=== PATIENT | female | born 1945 | race Caucasian/White ===

== ENCOUNTER 2019-11-20 09:51 | Outpatient (CLI) | payer OTHER, SELFPAY ==
--- NOTE | ~2019-11-20 | US_ITS ---
US abdomen complete EXAMINATION: US Abdomen Complete INDICATION: Right upper quadrant abdominal pain PROCEDURE: Realtime High Resolution abdomen ultrasound. COMPARISON: CT dated 01/05/2019 FINDINGS: There are gallstones with mild gallbladder wall thickening. Common bile duct measures 3 mm . Liver echotexture within normal limits without focal mass. Pancreas within normal limits. Pancreati c tail is obscured by bowel gas. Spleen is unremarkeable. Renal echotexture is within normal limits bilaterally without hydronephrosis, contour deforming mass or renal stone. Right kidney measures 10.5 cm. Left kidney measures 11.2 cm. Visualized aspects of the aorta and IVC are within normal limits. Portal vein is patent. No sonograph ic [place]'s sign indicated by the technologist. IMPRESSION: 1: Cholelithiasis with mild gallbladder wall thickening. Consider cholecystitis in the appropriate cl inical setting. Reviewed, dictated and finalized at location A. IMPRESSION: 1: Cholelithiasis with mild gallbladder wall thickening. Consider cholecystitis in the appropriate clinical setting.
== END 2019-11-20 09:52 | disposition home or self-care (01) ==
PROVIDERS: PCP Family Medicine Adolescent Medicine; Visit Provider Family Medicine Adolescent Medicine
DX: R10.11 Right upper quadrant pain (principal); R10.12 Left upper quadrant pain; K80.20 Calculus of gallbladder without cholecystitis without obstruction
CPT/HCPCS: 76700

== ENCOUNTER 2019-11-29 10:56 | Outpatient (CLI) | payer OTHER, SELFPAY ==
[2019-11-29 11:15] LABS: Basophils Percent Auto 0.3 % (0.2-1.2); Eosinophils Absolute Auto 0.2 K/mm3 (0-0.3); Eosinophils Percent Auto 1.3 % (0-4.4); Hematocrit 45.6 % (37.0-47.0); Hemoglobin 14.7 g/dL (12.0-15.0); Immature Granulocyte Absolute 0.03 K/mm3 (0.00-0.031); Immature Granulocyte Percent A 0.2 % (0-0.5); Lymphocytes Absolute Auto 6.72 K/mm3 (0.9-3.2); Lymphocytes Percent Auto 53.1 % (18.3-44.2); Mean Corpuscular HGB Conc 32.2 g/dl (32-36); Mean Corpuscular Hemoglobin 30.8 pg (26-34); Mean Corpuscular Volume 95.4 fl (80-100); Mean Platelet Volume 11.4 fl (7.4-10.4); Monocytes Absolute Auto 1.5 K/mm3 (0.1-0.6); Monocytes Percent Auto 11.9 % (2.6-8.5); Neutrophils Absolute Auto 4.2 K/mm3 (1.3-6.7); Neutrophils Percent Auto 33.2 % (45.5-73.1); Platelet Count Result 166 k/mm3 (150-375); Red Blood Count 4.78 M/mm3 (4.2-5.4); Red Cell Distribution Width 13.2 % (11.5-14.5); White Blood Count 12.7 K/mm3 (4.5-10.0)
[2019-11-29 11:20] LABS: Blood Urea Nitrogen 18 mg/dL (8-26); Carbon Dioxide 27 mmol/L (22-30); Chloride 105 mmol/L (98-109); Estimated Glomerular Filt Rate > 60; Glucose 94 mg/dL (70-105); Potassium 4.2 mmol/L (3.5-4.9); Sodium 141 mmol/L (138-146)
[2019-11-29 11:23] LABS: Atypical Lymphocytes Present; Platelet Estimate Adequate (Adequate)
[2019-11-29 12:01] LABS: Alanine Aminotransferase 16 U/L (4-35); Albumin Level 4.4 g/dL (3.5-5.1); Alkaline Phosphatase 101 U/L (38-126); Aspartate Amino Transferase 39 U/L (14-36); Bilirubin,Total 0.5 mg/dL (0.2-1.3); Blood Urea Nitrogen 18 mg/dL (7-17); Carbon Dioxide 26 mmol/L (22-30); Chloride 106 mmol/L (98-107); Estimated Glomerular Filt Rate > 60; Glucose 94 mg/dL (65-105); Lactate Dehydrogenase 506 U/L (313-618); Potassium 4.3 mmol/L (3.4-5.0); Sodium 139 mmol/L (137-145)
== END 2019-11-29 10:57 | disposition home or self-care (01) ==
PROVIDERS: PCP Family Medicine Adolescent Medicine; Visit Provider Internal Medicine Hematology & Oncology
DX: C83.00 Small cell B-cell lymphoma, unspecified site (principal)
CPT/HCPCS: 36415; 80048; 80053; 83615; 85025

== ENCOUNTER 2020-05-29 10:10 | Outpatient (CLI) | payer OTHER, SELFPAY ==
[2020-05-29 10:28] LABS: Basophils Absolute Auto 0.1 K/mm3 (0.0-0.1); Basophils Percent Auto 0.5 % (0.2-1.2); Eosinophils Absolute Auto 0.2 K/mm3 (0-0.3); Eosinophils Percent Auto 1.9 % (0-4.4); Hematocrit 45.1 % (37.0-47.0); Hemoglobin 14.7 g/dL (12.0-15.0); Immature Granulocyte Absolute 0.02 K/mm3 (0.00-0.031); Immature Granulocyte Percent A 0.2 % (0-0.5); Lymphocytes Percent Auto 48.9 % (18.3-44.2); Mean Corpuscular HGB Conc 32.6 g/dl (32-36); Mean Corpuscular Hemoglobin 30.5 pg (26-34); Mean Corpuscular Volume 93.6 fl (80-100); Mean Platelet Volume 11.1 fl (7.4-10.4); Monocytes Absolute Auto 1.3 K/mm3 (0.1-0.6); Monocytes Percent Auto 12.8 % (2.6-8.5); Neutrophils Absolute Auto 3.7 K/mm3 (1.3-6.7); Neutrophils Percent Auto 35.7 % (45.5-73.1); Platelet Count Result 169 k/mm3 (150-375); Red Blood Count 4.82 M/mm3 (4.2-5.4); Red Cell Distribution Width 13.2 % (11.5-14.5); White Blood Count 10.4 K/mm3 (4.5-10.0)
[2020-05-29 10:37] LABS: Atypical Lymphocytes Present; Platelet Estimate Adequate (Adequate)
[2020-05-29 12:24] LABS: Alanine Aminotransferase 18 U/L (4-35); Albumin Level 4.1 g/dL (3.5-5.1); Alkaline Phosphatase 97 U/L (38-126); Anion Gap 7 mmol/L (8-16); Aspartate Amino Transferase 37 U/L (14-36); Bilirubin,Total 0.5 mg/dL (0.2-1.3); Blood Urea Nitrogen 20 mg/dL (7-17); Calcium 9.2 mg/dL (8.4-10.2); Carbon Dioxide 25 mmol/L (22-30); Chloride 107 mmol/L (98-107); Estimated Glomerular Filt Rate > 60; Glucose 94 mg/dL (65-105); Lactate Dehydrogenase 461 U/L (313-618); Potassium 4.5 mmol/L (3.4-5.0); Sodium 139 mmol/L (137-145)
[2020-05-30 09:17] LABS: Blood Urea Nitrogen 21 mg/dL (8-26); Carbon Dioxide 23 mmol/L (22-30); Chloride 107 mmol/L (98-109); Estimated Glomerular Filt Rate > 60; Glucose 91 mg/dL (70-105); Potassium 4.3 mmol/L (3.5-4.9); Sodium 141 mmol/L (138-146)
== END 2020-05-29 10:11 | disposition home or self-care (01) ==
LOC: ANHLAB 10:12
PROVIDERS: PCP Family Medicine Adolescent Medicine; Visit Provider Internal Medicine Hematology & Oncology
DX: C83.00 Small cell B-cell lymphoma, unspecified site (principal)
CPT/HCPCS: 36415; 80048; 80053; 83615; 85025

== ENCOUNTER → 2020-08-06 17:07 | Outpatient (CLI) | payer OTHER, SELFPAY ==
--- NOTE | ~2020-08-06 | MM_ITS ---
EXAMINATION: MM screening prasanth BI w sarah HISTORY: Screening TECHNIQUE: Craniocaudal and mediolateral oblique 3-D tomosynthesis images were obtained and synthetic 2-D images were generated. CAD analysis was submitted and interpreted. COMPARISON: Comparison to multiple prior studies sequentially, with oldest reviewed study dated 09/2013. BREAST PARENCHYMAL COMPOSITION: There are scattered areas of fibroglandular density. FINDINGS: Axillary lymph nodes noted on prior examination are not visualized on the current study. Th ere is no evidence of suspicious mass, calcification, or architectural distortion to suggest malignan cy in either breast. There has been no suspicious interval change. IMPRESSION: 1. No mammographic evidence of malignancy. 2. Recommend routine screening mammography in one year. BI-RADS Category 1: Negative Reviewed, dictated and finalized at location A. CAL TECHNOLOGIST CHIEF
== END ==
PROVIDERS: Visit Provider Physician Assistant
DX: Z12.31 Encounter for screening mammogram for malignant neoplasm of breast (principal)
CPT/HCPCS: 77063; 77067

== ENCOUNTER 2021-09-07 09:27 | Outpatient (CLI) | payer OTHER, SELFPAY | END 2021-09-07 09:28 | disposition home or self-care (01) | LOC: ANHAUDIO 09:28 | PROVIDERS: Visit Provider Physician Assistant | DX: H90.3 Sensorineural hearing loss, bilateral (principal) | CPT/HCPCS: 92557; 92567 ==

== ENCOUNTER → 2021-10-02 12:22 | Outpatient (CLI) | payer OTHER, SELFPAY ==
--- NOTE | ~2021-10-02 | MM_ITS ---
EXAMINATION: MM screening prasanth BI w sarah HISTORY: Screening. Last Covid vaccination 4-6 weeks ago. TECHNIQUE: Craniocaudal and mediolateral oblique 3-D tomosynthesis images were obtained and synthetic 2-D images were generated. CAD analysis was submitted and interpreted. COMPARISON: Comparison to multiple prior studies sequentially, with oldest reviewed study dated 02/2015. BREAST PARENCHYMAL COMPOSITION: There are scattered areas of fibroglandular density. FINDINGS: There is new bilateral axillary lymphadenopathy. There is no evidence of suspicious mass, c alcification, or architectural distortion to suggest malignancy in either breast. There has been no s uspicious interval change. IMPRESSION: 1. Bilateral axillary lymphadenopathy, new since prior examination. 2. Recommend correlation with bilateral axillary ultrasound. BI-RADS Category 0: Incomplete: Needs additional imaging evaluation. Reviewed, dictated and finalized at location A.
== END ==
PROVIDERS: PCP Family Medicine Adolescent Medicine; Visit Provider Family Medicine Adolescent Medicine
DX: Z12.31 Encounter for screening mammogram for malignant neoplasm of breast (principal); R92.8 Other abnormal and inconclusive findings on diagnostic imaging of breast
CPT/HCPCS: 77063; 77067

== ENCOUNTER → 2021-10-12 10:52 | Outpatient (CLI) | payer OTHER, SELFPAY ==
--- NOTE | ~2021-10-12 | US_ITS ---
US axilla BI 10/12/2021 11:12 Indication: History of chronic lymphocytic leukemia and lymphoma. Bilateral axillary lymphadenopathy. Procedure: High-resolution ultrasound of the bilateral axilla Comparison: Mammogram dated 10/02/2021 and ultrasound dated 06/15/2019 Findings: There is bilateral axillary lymphadenopathy with largest right axillary lymph node measurin g 5.3 x 2.2 x 4.7 cm in largest left axillary lymph node measuring 3.2 x 2.1 x 6.7 cm. Most lymph nod es retain normal fatty hilum. Impression: 1: Chronic bilateral axillary lymphadenopathy, likely related to patient's known leukemia/lymphoma. BI-RADS CATEGORY 4-SUSPICIOUS ABNORMALITY RECOMMENDATION: Ultrasound-guided biopsy of dominant bilateral axillary lymph nodes recommended. Reviewed, dictated and finalized at location A. Impression: 1: Chronic bilateral axillary lymphadenopathy, likely related to patient's know n leukemia/lymphoma. BI-RADS CATEGORY 4-SUSPICIOUS ABNORMALITY RECOMMENDATION: Ultrasound-guided biopsy of dominant bilateral axillary lymph n odes recommended.
== END ==
PROVIDERS: PCP Internal Medicine Hematology & Oncology; Visit Provider Family Medicine Adolescent Medicine
DX: R59.0 Localized enlarged lymph nodes (principal); R92.8 Other abnormal and inconclusive findings on diagnostic imaging of breast
CPT/HCPCS: 76882

== ENCOUNTER 2022-04-26 09:47 | Outpatient (CLI) | payer OTHER, SELFPAY ==
[2022-04-26 10:12] LABS: Basophils Absolute Auto 0.1 K/mm3 (0.0-0.1); Basophils Percent Auto 0.6 % (0.2-1.2); Eosinophils Absolute Auto 0.3 K/mm3 (0-0.3); Eosinophils Percent Auto 3.1 % (0-4.4); Hematocrit 43.3 % (37.0-47.0); Hemoglobin 14.2 g/dL (12.0-15.0); Immature Granulocyte Absolute 0.01 K/mm3 (0.00-0.031); Immature Granulocyte Percent A 0.1 % (0-0.5); Lymphocytes Absolute Auto 2.51 K/mm3 (0.9-3.2); Lymphocytes Percent Auto 30.4 % (18.3-44.2); Mean Corpuscular HGB Conc 32.8 g/dl (32-36); Mean Corpuscular Hemoglobin 30.9 pg (26-34); Mean Corpuscular Volume 94.3 fl (80-100); Mean Platelet Volume 11.1 fl (7.4-10.4); Monocytes Absolute Auto 0.7 K/mm3 (0.1-0.6); Monocytes Percent Auto 7.9 % (2.6-8.5); Neutrophils Absolute Auto 4.8 K/mm3 (1.3-6.7); Neutrophils Percent Auto 57.9 % (45.5-73.1); Platelet Count Result 164 k/mm3 (150-375); Red Blood Count 4.59 M/mm3 (4.2-5.4); Red Cell Distribution Width 12.7 % (11.5-14.5); White Blood Count 8.3 K/mm3 (4.5-10.0)
[2022-04-26 10:15] LABS: Blood Urea Nitrogen 18 mg/dL (8-26); Carbon Dioxide 24 mmol/L (22-30); Chloride 105 mmol/L (98-109); Estimated Glomerular Filt Rate > 60; Glucose 100 mg/dL (70-105); Ionized Calcium (POC) 1.19 mmol/L (1.11-1.31); Potassium 4.5 mmol/L (3.5-4.9); Sodium 141 mmol/L (138-146)
[2022-04-26 11:28] LABS: Alanine Aminotransferase 18 U/L (6-35); Albumin Level 4.4 g/dL (3.5-5.1); Alkaline Phosphatase 110 U/L (38-126); Anion Gap 9 mmol/L (8-16); Aspartate Amino Transferase 31 U/L (14-36); Bilirubin,Total 0.7 mg/dL (0.2-1.3); Blood Urea Nitrogen 18 mg/dL (7-17); Calcium 8.5 mg/dL (8.4-10.2); Carbon Dioxide 24 mmol/L (22-30); Chloride 106 mmol/L (98-107); Estimated Glomerular Filt Rate > 60; Glucose 102 mg/dL (65-110); Potassium 4.4 mmol/L (3.4-5.0); Sodium 139 mmol/L (137-145)
== END 2022-04-26 09:48 | disposition home or self-care (01) ==
LOC: ANHLAB 09:48
PROVIDERS: PCP Family Medicine Adolescent Medicine; Visit Provider Internal Medicine Hematology & Oncology
DX: E83.19 Other disorders of iron metabolism (principal)
CPT/HCPCS: 36415; 80047; 80053; 85025

== ENCOUNTER 2023-03-05 22:30 | Emergency (ER) | payer OTHER, SELFPAY ==
--- NOTE | ~2023-03-05 | CT_ITS ---
EXAMINATION: CT abdomen pelvis wo con DATE: 03/06/2023 01:08 INDICATION: Left flank and abdominal pain. Lymphoma. TECHNIQUE: Computed tomography (CT) of the abdomen and pelvis was performed without intravenous contr ast. Automated exposure control and iterative reconstruction technique were employed. The dose-length product was 645.52 mGy-cm. COMPARISON: CT abdomen and pelvis 01/05/2019 FINDINGS: The visualized portions of the lung bases demonstrate mild scarring in paraspinal right low er limb. There is minimal atelectasis bilaterally. No pleural effusion. There is left atrial enlargem ent of the heart. No pericardial effusion. There is a small sliding hiatal hernia. The liver, spleen, pancreas, gallbladder, adrenal glands, and right kidney are normal. There is moderate left hydroneph rosis and hydroureter. There is a 7 x 5 mm stone at left ureterovesicular junction. There is divertic ulosis of the colon without evidence of diverticulitis. There are no dilated loops of bowel. The appe ndix is normal. There is a 3.2 x 2.3 cm mass with focal peripheral calcification at the root of the s mall bowel mesentery. There is a 1.7 x 1.1 cm right external iliac node that measured 2.1 x 1.3 cm on 01/05/19. There is no free intraperitoneal fluid. There is severe thoracic and lumbar spondylosis. Th ere is a hemangioma in T7 vertebral body. IMPRESSION: 1. 7 x 5 mm stone at left ureterovesicular junction with moderate left hydronephrosis and hydroureter . 2. 3.2 x 2.3 cm mass at the root of the small bowel mesentery with worsening from 01/05/19. The differ ential diagnosis includes carcinoid, sclerosing mesenteritis, and lymphoma. 3. Mildly enlarged right external iliac lymph node with improvement from 01/05/2019, consistent with l ymphoma. Reviewed, dictated and finalized at location E. IMPRESSION: 1. 7 x 5 mm stone at left ureterovesicular junction with moderate left hydronep hrosis and hydroureter. 2. 3.2 x 2.3 cm mass at the root of the small bowel mesentery with worsening fr om 01/05/19. The differential diagnosis includes carcinoid, sclerosing mesenteri tis, and lymphoma. 3. Mildly enlarged right external iliac lymph node with improvement from 019, consistent with lymphoma.
[2023-03-05 22:32] VITALS: BP 173/80; PULSE 64; RESP 19; TEMP 36.7; O2SAT 100
[2023-03-05 23:54] VITALS: BP 172/93; PULSE 60; RESP 20; O2SAT 98
[2023-03-05 23:55] VITALS: BP 172/93; PULSE 77; RESP 18; O2SAT 96
[2023-03-06 00:11] LABS: Basophils Absolute Auto 0.1 K/mm3 (0.0-0.1); Basophils Percent Auto 0.5 % (0.2-1.2); Eosinophils Absolute Auto 0.3 K/mm3 (0-0.3); Eosinophils Percent Auto 2.9 % (0-4.4); Hematocrit 44.1 % (37.0-47.0); Hemoglobin 14.5 g/dL (12.0-15.0); Immature Granulocyte Absolute 0.03 K/mm3 (0.00-0.031); Immature Granulocyte Percent A 0.3 % (0-0.5); Lymphocytes Absolute Auto 1.73 K/mm3 (0.9-3.2); Lymphocytes Percent Auto 15.7 % (18.3-44.2); Mean Corpuscular HGB Conc 32.9 g/dl (32-36); Mean Corpuscular Hemoglobin 31.3 pg (26-34); Mean Corpuscular Volume 95.2 fl (80-100); Mean Platelet Volume 11.7 fl (7.4-10.4); Monocytes Absolute Auto 0.8 K/mm3 (0.1-0.6); Monocytes Percent Auto 6.8 % (2.6-8.5); Neutrophils Absolute Auto 8.2 K/mm3 (1.3-6.7); Neutrophils Percent Auto 73.8 % (45.5-73.1); Platelet Count Result 184 k/mm3 (150-375); Red Blood Count 4.63 M/mm3 (4.2-5.4); Red Cell Distribution Width 12.9 % (11.5-14.5)
[2023-03-06 00:24] LABS: Alanine Aminotransferase 19 U/L (6-35); Albumin Level 4.3 g/dL (3.5-5.1); Alkaline Phosphatase 103 U/L (38-126); Anion Gap 5 mmol/L (8-16); Aspartate Amino Transferase 32 U/L (14-36); Bilirubin,Total 0.6 mg/dL (0.2-1.3); Blood Urea Nitrogen 18 mg/dL (7-17); Calcium 8.9 mg/dL (8.4-10.2); Carbon Dioxide 28 mmol/L (22-30); Chloride 106 mmol/L (98-107); Estimated CRCL calculation 40 ml/min; Estimated Glomerular Filt Rate 48; Glucose 115 mg/dL (65-110); Sodium 139 mmol/L (137-145)
--- NOTE | 2023-03-06 01:04 | PC.NURSE ---
Pt to CT at this time.
[2023-03-06] MEDS: SODIUM CHLORIDE 0.9% IV 1,000 ML 999 ML IV CONT (01:38)
[2023-03-06] MEDS: ONDANSETRON INJ 4 MG/2 ML VIAL IV PUSH (01:40)
[2023-03-06] MEDS: MORPHINE SULFATE (*CRX) 4 MG/ML INJ IV PUSH (01:40)
[2023-03-06 01:48] VITALS: BP 163/74; PULSE 69; RESP 18; O2SAT 89
[2023-03-06 02:14] LABS: Appearance Urine Clear (Clear); Bacteria Urine None Seen /hpf; Bilirubin Urine Negative (Negative); Blood Urine Trace (Negative); Color Urine Yellow (Yellow); Glucose Urine UA Negative (Negative); Ketones Urine Negative (Negative); Leukocyte Esterase Ur Negative LEU/UL (Negative); Nitrate Urine Negative (Negative); Protein Urine Negative (Negative); RBC Urine 0-2 /hpf (0-2); Specific Grav Ur 1.021 (1.001-1.035); Squamous Epithelial Cell Urine None seen /hpf (Few); Urobilinogen Urine 0.2 mg/dL (<2.0); WBC Urine 0-5 /hpf
[2023-03-06 02:16] VITALS: BP 154/70; PULSE 71; RESP 20; O2SAT 89
[2023-03-06 02:21] LABS: Add Urine Microscopic? YES
[2023-03-06 02:55] VITALS: BP 164/76; PULSE 63; RESP 22; O2SAT 95
--- NOTE | 2023-03-06 03:17 | ED.GENADULT ---
HPI - General Adult General Chief complaint: Back Pain/Injury Stated complaint: L flank/back pain Time Seen by Provider: 03/06/23 00:34 History of Present Illness HPI narrative: Patient is a 57-year-old female who presents the emergency department with chief complaint of left-sided flank pain and abdominal pain. Patient reports she was recently diagnosed with a UTI started on oral antibiotics reports that she started having worsening pain in the left side of her abdomen and left flank area the patient reports the pain is sharp not improved by anything. Related Data Home Medications Medication Instructions Recorded Confirmed melatonin 3 mg capsule 3 mg PO QHS 08/25/22 03/02/23 Allergies Allergy/AdvReac Type Severity Reaction Status Date / Time codeine AdvReac Intermediate nausea Verified 03/02/23 13:01 Review of Systems Review of Systems: A 10 system review of systems was completed on the patient and is negative except for what is stated in the HPI. Nursing and ancillary documentation was reviewed. [facility] Surgical History Surgical History H/O hysterectomy with oophorectomy 1989 History of total bilateral knee replacement right 2018 Family History Family History Mother Diabetes mellitus Cervical cancer Father Heart disease Sibling Hemochromatosis Sibling Diabetes mellitus Other Family history of gout Hypertension Social History Social History Smoking status: Current every day smoker Tobacco type: cigarettes Second hand tobacco smoke exposure: No Alcohol intake: current Alcohol use details: very rarely Substance use: never Lack of Transportation: No Lack of Food: Never True Current Housing: I Have Housing Concerned About Future Housing: No Difficulty Paying Gas/Electric Bills: No Difficulty Paying for Meds: No Currently Unemployed: No Education: High School Diploma/GED Difficulty w/ Childcare or Family Care: No Living arrangements: with family Occupation/Education: retired Gender identity (if verbalized by the patient): Female Sexual Orientation (if Verbalized by the Patient): Straight or Heterosexual Spiritual care concerns: No Agree to blood products: Yes Exam Narrative: GENERAL: Well-appearing, well-nourished, and in mild acute pain distress. HEAD: Normocephalic, atraumatic. EYES: PERRLA and EOMI. ENT: Nares clear, no rhinorrhea or epistaxis. Mucous membranes moist. NECK: Supple. CHEST: Clear to auscultation. No respiratory distress. HEART: Regular rate and rhythm. No murmur heard. Normal peripheral pulses. ABDOMEN: Soft, nontender, nondistended, normal active bowel sounds. EXTREMITIES: Normal range of motion. No edema. SKIN: Warm, dry, no rash. NEURO: No focal deficits. Alert and oriented x3. PSYCH: Normal mood and affect. Course Vital Signs Vital signs: Vital Signs Temperature 36.7 C 03/05/23 22:32 Pulse Rate 64 03/05/23 22:32 Respiratory Rate 19 03/05/23 22:32 Blood Pressure 173/80 H 03/05/23 22:32 Pulse Oximetry 100 03/05/23 22:32 Oxygen Delivery Room Air 03/05/23 22:32 Temperature 36.7 C 03/05/23 22:32 Pulse Rate 63 03/06/23 02:55 Respiratory Rate 22 H 03/06/23 02:55 Blood Pressure 164/76 H 03/06/23 02:55 Pulse Oximetry 95 03/06/23 02:55 Oxygen Delivery Room Air 03/05/23 23:54 Medical Decision Making MDM Narrative Medical decision making narrative: Differential diagnosis includes kidney stone, UTI, pyelonephritis, colitis, diverticulitis Laboratory studies were obtained and the patient showed a normal CBC electrolytes showed a creatinine of 1.1 urinalysis showed no evidence of UTI CT scan of the abdomen pelvis showed evidence of a 7 x 5 mm stone at the UVJ on the left side there
[2023-03-06] MEDS: HYDROcodone/acetaminophen (*CRX) 5-325 MG TABLET 1 TAB PO (03:36)
[2023-03-06] MEDS: TAMSULOSIN HCL 0.4 MG CAPSULE PO (03:36)
[2023-03-06 03:41] VITALS: BP 175/74; PULSE 70; RESP 19; O2SAT 98
== END 2023-03-06 03:44 | disposition home or self-care (01) ==
PROVIDERS: Emergency Provider Emergency Medicine; PCP Family Medicine Adolescent Medicine
DX: N20.1 Calculus of ureter (principal); F17.210 Nicotine dependence, cigarettes, uncomplicated
CPT/HCPCS: 36415; 74176; 80053; 81001; 81025; 85025; 96361; 96374; 96375; 99284; A9270; J2270; J2405; J7030

== ENCOUNTER 2023-10-14 10:11 | Outpatient (CLI) | payer OTHER, SELFPAY ==
--- NOTE | ~2023-10-14 | XR_ITS ---
XR abdomen/kub 1V 10/14/2023 10:36 INDICATION: Nephrolithiasis TECHNIQUE: KUB COMPARISON: None FINDINGS: Bowel gas pattern is normal. There is no evidence of free air, mass, organomegaly, ascites or obstruction. No abnormal calculi are seen. There are pelvic phleboliths. The bones appear intact . There is severe lumbar spondylosis. 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 IMPRESSION: 1: No acute abdominal abnormality identified. Reviewed, dictated and finalized at location B.
--- NOTE | ~2023-10-14 | US_ITS ---
US retroperitoneal comp 10/14/2023 10:28 Procedure: Realtime transabdominal ultrasound of the kidneys and bladder. Indication: Nephrolithiasis. Comparison: No prior studies for comparison. Findings: Renal echotexture is normal bilaterally without hydronephrosis, contour deforming mass or r enal calculus. The right kidney measures 11.6 cm and left kidney measures 0.3 cm. Bladder within nor mal limits. Impression: 1: Unremarkable renal ultrasound. No stones, masses or hydronephrosis. Reviewed, dictated and finalized at location B. Impression: 1: Unremarkable renal ultrasound. No stones, masses or hydronephrosis.
== END 2023-10-14 10:12 ==
LOC: MICIMG 10:12
PROVIDERS: PCP Urology; Visit Provider Urology
DX: N20.0 Calculus of kidney (principal)
CPT/HCPCS: 74018; 76770

== ENCOUNTER 2025-01-31 10:14 | Outpatient (CLI) | payer OTHER, SELFPAY ==
--- OUTSIDE RECORDS SUMMARY | 2025-01-31 10:28 | XMS_ITS | Encounter Summary ---
Author Organization [facility] Address [address] [place] [address] Care Team Providers Care Associate Attorney Name Role Phone Kip King MD Primary Care Provider [phone]- [phone] Encounter Details Date Type Department Care Team (Late Contact Info) Description 01/31/2025 Orders Only [facility] Oncology and Hematology [address] [place] [address] Kaveh Kellogg MD [facility] [employer] [address] [place] [phone] Iron overload (Primary Dx) Social History Tobacco Use Types Packs/Day Years Used Date Smoking Tobacco: Every Day Cigarettes 0.5 25 Smokeless Tobacco: Never Alcohol Use Standard Drinks/Week Comments Never 0 (1 standard drink = 0.6 oz pur e alcohol) Comments No Sex and Gender Information Value Date Recorded Sex Assigned at Not on file Legal Sex Female 10:16 AM CDT Gender Identity Not on file Sexual Orientation Not on file documented as of this encounter Plan of Treatment Upcoming Encounters Date Type Department Care Team (Late Contact Info) Description 02/01/2025 8:45 AM CDT Office Visit [facility] Oncology and Hematology [address] [place] [address] Kaveh Kellogg MD [facility] [employer] [address] [place] [phone] Scheduled Orders Name Type Priority Associated Diagnoses Orde r Schedule CBC WITH DIFFERENTIAL Lab Routine Iron overload Expected: 01/31/2025, Expires: 01/31/2026 COMPREHENSIVE METABOLIC PANEL Lab Routine Iron overload Expected: 01/31/2025, Expires: 01/31/2026 IRON, TIBC, AND PERCENT SATURATION Lab Routine Iron overload Expected: 01/31/2025, Expires: 01/31/2026 FERRITIN Lab Routine Iron overload Expected: 01/31/2025, Expires: 01/31/2026 documented as of this encounter Visit Diagnoses Diagnosis Iron overload- Primary Other disorders of iron metabolism documented in this encounter Care Teams Associate Attorney Relationship Specialty Start Date End Date Kip King MD PCP - General Family Practice 02/09/19 documented as of this encounter
--- OUTSIDE RECORDS SUMMARY | 2025-01-31 10:28 | XMS_ITS | Clinical Summary ---
Author Organization [facility] Address [address] [facility] [address] Care Team Providers Care Business Development Representative Name Role Phone Kip King MD Primary Care Provider +1- [phone] Allergies Active Allergy Reactions Criticality Noted Date Comments Codeine Rash Low 02/14/2019 Medications celecoxib (CELEBREX ORAL) Take by mouth. Active OMEPRAZOLE ORAL Take 20 mg by mouth every 12 hours as needed. Active atorvastatin (LIPITOR) 20 mg tablet Take 20 mg by mouth daily. 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 Encounters Date Type Department Care Team Description 01/31/2025 Orders Only [facility] Oncology and Hematology - [address] [place] [address] Kaveh Kellogg MD Iron overload (Primary Dx) 01/29/2025 Orders Only [facility] Oncology and Hematology - [address] [place] [address] Kaveh Kellogg MD Small B-cell lymphoma, unspecified body region (CMS/HCC) (Primary Dx) 01/22/2025 External Device Data STL ABSTRACTION Provider, Abstract 01/02/2025 External Device Data STL ABSTRACTION Provider, Abstract 01/01/2025 External Device Data STL ABSTRACTION Provider, Abstract 12/11/2024 External Device Data STL ABSTRACTION Provider, Abstract 11/27/2024 External Device Data STL ABSTRACTION Provider, Abstract 11/27/2024 External Device Data STL ABSTRACTION Provider, Abstract 11/27/2024 External Device Data STL ABSTRACTION Provider, Abstract 11/07/2024 External Device Data STL ABSTRACTION Provider, Abstract 11/06/2024 External Device Data STL ABSTRACTION Provider, Abstract from Last 3 Months Family History Medical History Relation Name Comments Diabetes Brother Heart Disease Father Cancer Mother Relation Name Status Comments Brother Father Mother Sister 1 Alive Sister 2 Alive Social History Tobacco Use Types Packs/Day Years Used Date Smoking Tobacco: Every Day Cigarettes 0.5 25 Smokeless Tobacco: Never Tobacco Cessation:Ready to Q uit: Not Asked; Counseling Given: Not Answered Alcohol Use Standard Drinks/Week Comments Never 0 (1 standard drink = 0.6 oz pur e alcohol) Comments No Sex and Gender Information Value Date Recorded Sex Assigned at Not on file Legal Sex Female 10:16 AM CDT Gender Identity Not on file Sexual Orientation Not on file Last Filed Vital Signs Vital Sign Reading Time Taken Comments Blood Pressure 148/93 01/27/2024 8:55 AM CDT Pulse 79 01/27/2024 8:55 AM CDT Temperature 36.3 C (97.3 F) 01/27/2024 8:51 AM CDT Respiratory Rate 16 01/27/2024 8:51 AM CDT Oxygen Saturation 90% 01/27/2024 8:51 AM CDT Inhaled Oxygen Concentration - - Weight 79.4 kg (175 lb) 01/27/2024 8:51 AM CDT Height 172.7 cm (5' 8) 07/27/2021 9:23 AM BORING MACHINE OPERATOR Body Mass Index 26.61 07/27/2021 9:23 AM BORING MACHINE OPERATOR Plan of Treatment Upcoming Encounters Date Type Department Care Team (Late st Contact Info) Description 02/01/2025 8:45 AM CDT Office Visit [facility] Oncology and Hematology - [address] [facility] [address] [place] [address] Kaveh Kellogg MD [address] [facility] [address] [place] [address] Health Maintenance Due Date Last Done Comments DTAP/TDAP/TD VACCINES (1 - Tdap) 12/09/1966 PNEUMOCOCCAL VACCINE 50+ YEARS (1 of 2 - PCV) 12/09/18 67 ZOSTER VACCINE (1 of 2) 12/09/1997 OSTEOPOROSIS SCREENING 12/09/2012 RSV VACCINE (60+ or ) (1 - 1-dose 75+ series) 12/09/2022 Medicare Advantage ([place]) Prev entative Visit/Annual Wellness Visit 06/20/2024 INFLUENZA VACCINE (#1) 2025 Insurance [facility] M[facility] Care Teams Business Development Representative Relationship Specialty Start Date End Date Kip King MD PCP - General Family Practice 02/09/19
--- OUTSIDE RECORDS SUMMARY | 2025-01-31 10:28 | XMS_ITS | Clinical Summary ---
Author Organization [facility] Address [address] [place] [id number] Care Team Providers Care Coal Grader Name Role Phone Kip King MD Primary Care Provider +1- [phone] Allergies Active Allergy Reactions Criticality Noted Date Comments Codeine Unknown 04/14/2023 Medications atorvastatin (LIPITOR) 20 MG tablet Take 1 tablet (20 mg total) by mouth nightly at bedtime. Active celecoxib (CELEBREX) 200 MG capsule Take 1 capsule (200 mg total) by mouth daily. Active melatonin 1 MG tablet Take 1 tablet (1 mg total) by mouth nightly as needed. Active omeprazole EC (PRILOSEC OTC) 20 MG tablet Take 1 tablet (20 mg total) by mouth daily. Active Active Problems Problem Noted Date Diagnosed Date Ureteral stone 04/19/2023 Family History Medical History Relation Comments Cancer Father lung Heart Father Cancer Mother uterine Relation Status Comments Father Mother Social History Tobacco Use Types Packs/Day Years Used Date Smoking Tobacco: Some Days Cigarettes Smokeless Tobacco: Never Comments:I'm a closet smoke r, please do not discuss smoking history with spouse present Alcohol Use Standard Drinks/Week Comments Not Currently 0 (1 standard drink = 0.6 oz pur e alcohol) a glass of wine on a holiday Comments No Sex and Gender Information Value Date Recorded Sex Assigned at Not on file Legal Sex Female 12:45 PM CDT Gender Identity Not on file Sexual Orientation Not on file Last Filed Vital Signs Vital Sign Reading Time Taken Comments Blood Pressure 132/82 04/19/2023 2:30 PM CDT Pulse 72 04/19/2023 2:30 PM CDT Temperature 36.6 C (97.9 F) 04/19/2023 2:30 PM CDT Respiratory Rate 16 04/19/2023 2:30 PM CDT Oxygen Saturation 95% 04/19/2023 2:30 PM CDT Inhaled Oxygen Concentration - - Weight 78.2 kg (172 lb 6.4 oz) 04/19/2023 11:15 AM CDT Height 172.7 cm (5' 8) 04/19/2023 11:15 AM CDT Body Mass Index 26.21 04/19/2023 11:15 AM CDT Plan of Treatment Health Maintenance Due Date Last Done Comments Hepatitis C 12/09/1965 DTaP, Tdap and Td Vaccines (1 - Tdap) 12/09/1966 Pneumococcal Vaccine: 50+ Years (1 of 2 - PCV) 12/09/1966 Annual Medicare Wellness Visit 12/09/2012 Dexa Scan (General) 12/09/2012 Zoster Vaccines (2 of 2) 08/21/2020 06/26/2020 RSV Immunization or 60+ Years (1 - 1-dose 75+ series) 12/09/2022 COVID-19 Vaccine (5 - season) 2024 08/30/2022, 04/01/2021, 09/02/2020, Additional history exists Meningococcal B Vaccine Aged Out No l onger eligible based on patient's age to complete this topic Meningococcal Vaccine Aged Out No collette eben eligible based on patient's age to complete this topic RSV Immunizations Under 20 Months Aged Out No longer eligible based on patient's age to complete this topic Medical Devices Implanted Type Area Senior Control Systems Engineer Device Identifier Shelf Expiration Date Model / Serial / Lot Stent Ureteral 6fr 26cm Pigtl Crv Taper Tip Bldr Mrk - [id number] Implanted:Qty : 1 on 04/19/2023 by Enio Nath MD at [facility] Stent Left: Ureter Support Your App [employer] [id number] 01/14/2026 [id number] [place] [address] [place] Care Teams Coal Grader Relationship Specialty Start Date End Date Kip King MD [address] [address] PCP - General FAMILY PRACTICE 04/19/23
--- OUTSIDE RECORDS SUMMARY | 2025-01-31 10:28 | XMS_ITS | Clinical Summary ---
Author Organization [facility] [address] Address [address] [place] [address] Care Team Providers Care Strike Plate Attacher Name Role Phone Kip King MD Primary Care Prov ider Allergies Active Allergy Reactions Criticality Noted Date Comments Codeine Unknown 07/05/2017 Social History Tobacco Use Types Packs/Day Years Used Date Smoking Tobacco: Never Assessed Personal Safety Answer Date Recorded Getting School Help Needed Not on file 09/03 Comments Unknown Sex and Gender Information Value Date Recorded Sex Assigned at Not on file Legal Sex Female 12:18 PM SOLUTION ANALYST Gender Identity Not on file Sexual Orientation Not on file Plan of Treatment Not on file Insurance [facility] Care Teams Strike Plate Attacher Relationship Specialty Start Date End Date Kip King MD [address] [place] [address] PCP - General Family Medicine 06/28/17
--- OUTSIDE RECORDS SUMMARY | 2025-01-31 10:28 | XMS_ITS | Encounter Summary ---
Author Organization [facility] Address [address] [place] [address] Care Team Providers Care Briquette Maker Name Role Phone Kip King MD Primary Care Provider + Encounter Details Date Type Department Care Team (Late st Contact Info) Description 01/30/2019 Lab Requisition [facility] Care Pathology Lab [address] [place] [address] Ramiro Son MD [address] [place] [address] Social History Tobacco Use Types Packs/Day Years Used Date Smoking Tobacco: Never Assessed Comments Unknown Sex and Gender Information Value Date Recorded Sex Assigned at Not on file 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 Gender Identity Not on file Sexual Orientation Not on file documented as of this encounter Plan of Treatment Not on file documented as of this encounter Procedures Procedure Name Priority Date/Time Associated Diagnosis Comments PATHOLOGY TISSUE Routine 01/29/2019 10:0 0 AM CDT documented in this encounter Results * PATHOLOGY TISSUE (01/29/2019 10:00 AM CDT) Case Report Surgical Pathology Report Case: [id number] Authorizing Provider: Ramiro Son MD Collected: 01/29/2019 10:00 AM Ordering Location: [facility] Care Pathology Lab Received: 01/30/2019 02:30 PM Pathologist: Gera Vallecillo MD Specimen: Lymph Node Biopsy, [id number] 01/31/2019 10:28 AM CDT [facility] Final Diagnosis Lymph node, right axillary, needle core biopsy: - 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 There is no definitive architecture identified. No definitive germinal centers are seen. The lymphocytes are small and mature. There are pseudo follicles seen. No diffuse sheets of large cells identified. There are no Hodgkin or Gato Rolando cells seen. There is no necrosis or fibrosis seen. There is no acute inflammatory infiltrate, eosinophils or granulomas seen. Immunohistochemical stains are performed with appropriately reactive controls. The CD20 highlights sheets of small B-lymphocytes, which are also positive for CD23, CD5, BCL2, and BCL6 (weak) but not for CD10 and cyclin D1. The CD3 highlights background mature T-lymphocytes. 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 Overall, these findings are compatible with small lymphocytic lymphoma/chronic lymphocytic leukemia (SLL/CLL). Please note that this specimen is a small needle core biopsy and may not be maintenance representative of entire lesion. Clinical, radiological (PET), and cytogenetic correlation is required. 01/31/2019 10:28 AM [facility] Clinical History 01/31/2019 10:28 AM [facility] Materials Received Received are 2 slides and 1 block labeled as [id number] along with the outside pathology report. [place] [address]. All materials are returned to the referring institution, along with a copy of our final report. 01/31/2019 10:28 AM [facility] Disclaimer The performance characteristics of all immunohistochemical and indirect immunofluorescence stains (if any) cited in this report were determined by the Histopathology Laboratory of [facility]. Some of these tests were developed by our own laboratory and have not been cleared or approved by the US Food and Drug Administration. The FDA does not require this test to go through premarket FDA review. These tests are used for clinical purposes. They should not be regarded as investigational or for research. This laboratory is certified under the Clinical Laboratory Improvement Amendments (CLIA) as qualified to perform high complexity clinical laboratory testing. This case has been personally reviewed and interpreted by the attending (teaching) pathologist. 01/31/2019 10:28 AM [facility] Embedded Images 01/31/2019 10:28 AM CDT [facility] Pathology/Cytolo gy BIOPSY OF LYMPH NODE / Unknown 01/29/2019 10:00 AM CDT 01/30/2019 2:30 PM CDT Ramiro Son MD LAB - PATHOLOGY/CYTOLOGY ORDER JAQUELIN Final Result Performing Organization Address City/State/[facility] Co de Phone Number [facility] [address] [phone] documented in this encounter Visit Diagnoses Not on filedocumented in this encounter Care Teams Briquette Maker Relationship Specialty Start Date End Date Kip King MD [address] [address] PCP - General 11/20/09 documented as of this encounter
--- OUTSIDE RECORDS SUMMARY | 2025-01-31 10:28 | XMS_ITS | Clinical Summary ---
Author Organization [facility] Address [address] [place] [address] Care Team Providers Care Wheelchair Van Driver Name Role Phone Kip King MD Primary Care Provider + Source Comments [facility],non-owned Affiliates and Associated Physician Practices is amultiple site organization consisting of ambulatory clinics and hospital sitesin [place], [place], [place] and [place]. This disclosure is being madepursuant to the Care Everywhere program and may not contain all information available regarding this patient. 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 Gender Identity Not on file Sexual Orientation Not on file Plan of Treatment Health Maintenance Due Date Last Done Comments BONE DENSITY TESTING 1945 HEPATITIS C SCREENING 12/05/1965 DTAP/TDAP/TD VACCINES (1 - Tdap) 12/09/1966 PNEUMOCOCCAL VACCINE 50+ (1 of 1 - PCV) 12/09/1997 ZOSTER VACCINE (1 of 2) 12/09/1997 Respiratory Syncytial Virus (RSV) Vaccine Pt: or over 60 yrs (1 - 1-dose 75+ series) 12/09/2022 COVID-19 VACCINE ( - 2023-2 5 season) 2024 DEPRESSION SCREENING 06/20/2024 INFLUENZA VACCINE (#1) 2025 HEPATITIS B VACCINE Aged Out No longe r eligible based on patient's age to complete this topic HIB VACCINE Aged Out No longer eligi ble based on patient's age to complete this topic HPV VACCINE Aged Out No longer eligi ble based on patient's age to complete this topic MENINGOCOCCAL (Group B) VACC INE SHARED DECISION-MAKING Aged Out No longer eligibl e based on patient's age to complete this topic MENINGOCOCCAL GROUPS A/C/Y/W VACCINE Aged Out No longer eligible b ased on patient's age to complete [place] [address] [employer] Care Teams Wheelchair Van Driver Relationship Specialty Start Date End Date Kip King MD [address] [facility] [address] [place] [address] PCP - General 11/20/09
[2025-01-31 10:49] LABS: Hematocrit 44.0 % (37.0-47.0); Hemoglobin 14.4 g/dL (12.0-15.0); Immature Granulocyte Percent A 0.3 % (0-0.5); Lymphocytes Absolute Auto 2.25 K/mm3 (0.9-3.2); Mean Corpuscular HGB Conc 32.7 g/dl (32-36); Mean Corpuscular Hemoglobin 31.2 pg (26-34); Mean Corpuscular Volume 95.2 fl (80-100); Nucleated Red Blood Cells Absolute Auto 0.000 K/mm3 (0.0-0.012); Nucleated Red Blood Cells Perc 0.0 % (0.0-0.2); Platelet Count Result 190 k/mm3 (150-375); Red Blood Count 4.62 M/mm3 (4.2-5.4); White Blood Count 7.8 K/mm3 (4.5-10.0)
[2025-01-31 12:32] LABS: Alanine Aminotransferase 16 U/L (6-35); Albumin Level 4.4 g/dL (3.5-5.1); Alkaline Phosphatase 110 U/L (38-126); Anion Gap 7 mmol/L (4-12); Aspartate Amino Transferase 35 U/L (14-36); Bilirubin,Total 0.6 mg/dL (0.2-1.3); Blood Urea Nitrogen 22 mg/dL (7-17); Calcium 9.2 mg/dL (8.4-10.2); Carbon Dioxide 25 mmol/L (22-30); Chloride 107 mmol/L (98-107); Estimated Glomerular Filt Rate > 60; Glucose 104 mg/dL (65-110); Potassium 4.4 mmol/L (3.4-5.0); Sodium 139 mmol/L (137-145); Total Protein 6.6 g/dL (6.3-8.2)
[2025-01-31 13:24] LABS: Iron 112 ug/dL (37-170)
[2025-01-31 13:53] LABS: Percent Iron Saturation 31 % (20-50)
[2025-01-31 14:12] LABS: Ferritin 70.70 ng/mL (11.1-264)
== END 2025-01-31 10:15 | disposition home or self-care (01) ==
LOC: ANHLAB 10:14
PROVIDERS: PCP Family Medicine Adolescent Medicine; Visit Provider Internal Medicine Hematology & Oncology
DX: E83.19 Other disorders of iron metabolism (principal)
CPT/HCPCS: 36415; 80053; 82728; 83540; 83550; 85025